=== PATIENT | female | born 1975 | race Caucasian/White ===

== ENCOUNTER 2019-04-13 16:10 | Emergency (ER) | payer MEDICAID, OTHER ==
[2019-04-13] MEDS: MECLIZINE 12.5 MG TAB PO ×2 (16:42→17:25)
[2019-04-13] MEDS: ONDANSETRON (ODT) 4 MG TAB ODT ×2 (16:42→17:24)
== END 2019-04-13 19:09 | disposition home or self-care (01) ==
LOC: E/R 19:09
DX: R42 Dizziness and giddiness (principal); R40.2142 Coma scale, eyes open, spontaneous, at arrival to emergency department; R40.2252 Coma scale, best verbal response, oriented, at arrival to emergency department
CPT/HCPCS: 70450; 81025; 82962; 93005; 99284-25